=== PATIENT | male | born 1935 | race Two or more races ===

== ENCOUNTER 2020-10-10 16:47 | Inpatient (IN) | payer OTHER, MEDICAID ==
[~2020-10-10] VITALS: Ht 165.1 cm; Wt 71.4 kg
[2020-10-10 18:29] LABS: Basophils # (auto) 0.1 10 ^3/uL (0-0.2); Basophils % (auto) 0.5 % (0.0-2.0); Eosinophils # (auto) 0.3 10 ^3/uL (0-0.8); Eosinophils % (auto) 3.2 % (0.0-7.0); Hematocrit 37.3 % (41.0-53.0); Hemoglobin 12.8 g/dL (13.5-17.5); Lymphocytes % (auto) 31.2 % (10.0-50.0); Mean Corpuscular Hemoglobin 30.7 pg (28.0-32.0); Mean Corpuscular Hgb Conc. 34.2 g/dL (32.0-36.0); Mean Corpuscular Volume 89.8 fL (80.0-100.0); Monocytes # (auto) 0.7 10 ^3/uL (0-1.3); Monocytes % (auto) 7.7 % (0.0-12.0); Neutrophils # (auto) 5.4 10 ^3/uL (1.6-8.6); Neutrophils % (auto) 57.4 % (37.0-80.0); Red Blood Cells 4.16 10^6/uL (4.5-5.90); Red Cell Distribution Width 13.6 % (11.8-14.3); White Blood Cell 9.5 10^3/uL (4.4-10.8)
[2020-10-10 18:49] LABS: Alanine Aminotransferase 20 U/L (16-61); Albumin 3.8 g/dL (3.4-5.0); Anion Gap 9 (5-15); Aspartate Aminotransferase 15 U/L (15-37); Blood Urea Nitrogen 18 mg/dL (7-18); Calcium 8.5 mg/dL (8.5-10.1); Carbon Dioxide 23 mmol/L (21-32); Chloride 100 mmol/L (98-107); Glucose 110 mg/dL (74-106); Potassium 4.1 mmol/L (3.5-5.1); Sodium 132 mmol/L (136-145)
[2020-10-10 18:54] LABS: Alkaline Phosphatase 61 U/L (45-117); BUN/Creatinine Ratio 19.8; Bilirubin, Total 0.6 mg/dL (0.2-1.0); GFR African American 102 mL/min; GFR Non-African American 84 mL/min
[2020-10-10] MEDS ORDERED: ASPirin 81 mg TAB PO ONE (19:15)
[2020-10-10 19:49] LABS: INR 1.03 (0.9-1.15)
[2020-10-10] MEDS ORDERED: ACETAMINOPHEN 325 MG TAB PO PRN (21:00)
[2020-10-10] MEDS ORDERED: ONDANSETRON HCL 4 MG/2 ML VIAL IV PRN (21:00)
[2020-10-10] MEDS ORDERED: TEMAZEPAM 15 MG CAP PO PRN (21:00)
[2020-10-10] MEDS ORDERED: NITROGLYCERIN 0.4 MG SL TAB SL PRN (21:00)
[2020-10-10] MEDS ORDERED: MORPHINE SULFATE INJECTION 2 MG/ML SYRG IV PRN (21:00)
[2020-10-10] MEDS ORDERED: DEXTROSE (50%) 50ML SYRG IV PRN (21:00)
[2020-10-10] MEDS: InsuLIN REG 1unit/0.01ml Soln (100units/ml) SC SCH (22:00)
[2020-10-10 22:10] VITALS: BP 123/70
[2020-10-10] MEDS: ACCU-CHEK COMFORT CURVE STRIP VI SCH (22:33)
[2020-10-10] MEDS: CARVEDILOL 12.5 MG TAB PO SCH (22:34)
[2020-10-10] MEDS: ATORVASTATIN 20 MG TAB PO SCH (22:34)
[2020-10-10 22:45] VITALS: BP 123/70
[2020-10-11 05:12] VITALS: BP 104/59
[2020-10-11 06:17] LABS: Basophils # (auto) 0.1 10 ^3/uL (0-0.2); Basophils % (auto) 0.8 % (0.0-2.0); Eosinophils # (auto) 0.3 10 ^3/uL (0-0.8); Hematocrit 36.7 % (41.0-53.0); Hemoglobin 12.6 g/dL (13.5-17.5); Lymphocytes # (auto) 2.5 10 ^3/uL (0.4-5.4); Lymphocytes % (auto) 38.7 % (10.0-50.0); Mean Corpuscular Hemoglobin 31.2 pg (28.0-32.0); Mean Corpuscular Hgb Conc. 34.4 g/dL (32.0-36.0); Mean Corpuscular Volume 90.7 fL (80.0-100.0); Monocytes # (auto) 0.7 10 ^3/uL (0-1.3); Monocytes % (auto) 10.9 % (0.0-12.0); Neutrophils # (auto) 2.9 10 ^3/uL (1.6-8.6); Neutrophils % (auto) 44.6 % (37.0-80.0); Nucleated Red Blood Cells % 0.2 %; Red Blood Cells 4.04 10^6/uL (4.5-5.90); Red Cell Distribution Width 13.8 % (11.8-14.3); White Blood Cell 6.6 10^3/uL (4.4-10.8)
[2020-10-11] MEDS: ACCU-CHEK COMFORT CURVE STRIP VI SCH ×4 (06:31→22:13)
[2020-10-11] MEDS: InsuLIN REG 1unit/0.01ml Soln (100units/ml) SC SCH ×4 (06:32→22:00)
[2020-10-11 06:46] LABS: BUN/Creatinine Ratio 21.8; Calcium 8.5 mg/dL (8.5-10.1); Potassium 3.8 mmol/L (3.5-5.1)
[2020-10-11] MEDS: FUROSEMIDE 40 MG TAB PO SCH (08:10)
[2020-10-11] MEDS: FINASTERIDE 5 MG TAB PO SCH (08:11)
[2020-10-11] MEDS: CARVEDILOL 12.5 MG TAB PO SCH (08:11)
[2020-10-11] MEDS: CLOPIDOGREL BISULFATE 75 MG TAB PO SCH (08:11)
[2020-10-11] MEDS: ENOXAPARIN SOD 40 MG/0.4 ML SYRINGE SC SCH (08:12)
[2020-10-11 09:00] VITALS: BP 122/66
[2020-10-11] MEDS ORDERED: LOSARTAN POTASSIUM 50 MG TAB PO SCH (10:00)
[2020-10-11] MEDS ORDERED: FAMOTIDINE 20 MG TAB PO SCH (10:00)
[2020-10-11] MEDS ORDERED: ASPirin 81 mg TAB PO SCH (10:00)
[2020-10-11] MEDS ORDERED: SIMV-8 PO (10:05)
[2020-10-11] MEDS ORDERED: FINA5TAB4 PO (10:05)
[2020-10-11] MEDS ORDERED: ASPI-543 PO (10:05)
[2020-10-11] MEDS ORDERED: CARV12.544 PO (10:05)
[2020-10-11] MEDS ORDERED: FAMO-12 PO (10:05)
[2020-10-11] MEDS ORDERED: LOSA-69 PO (10:05)
[2020-10-11] MEDS ORDERED: SPIR25TA8 PO (10:05)
[2020-10-11] MEDS ORDERED: METF-370 PO (10:05)
[2020-10-11] MEDS ORDERED: FURO40TA4 PO (10:05)
[2020-10-11] MEDS ORDERED: CLOP75TA70 PO (10:05)
[2020-10-11 13:00] VITALS: BP 134/72
[2020-10-11 16:54] VITALS: BP 106/60
[2020-10-11 20:00] VITALS: BP 129/60
[2020-10-11] MEDS: ATORVASTATIN 20 MG TAB PO SCH (22:00)
[2020-10-11] MEDS: CARVEDILOL 3.125 MG TAB PO SCH (22:00)
[2020-10-12 04:59] VITALS: BP 121/58
[2020-10-12] MEDS: ACCU-CHEK COMFORT CURVE STRIP VI SCH ×2 (06:41→11:30)
[2020-10-12] MEDS: InsuLIN REG 1unit/0.01ml Soln (100units/ml) SC SCH ×2 (06:44→11:30)
[2020-10-12 06:51] LABS: Magnesium 2.5 mg/dL (1.6-2.6); Potassium 4.1 mmol/L (3.5-5.1)
[2020-10-12 06:58] LABS: Cholesterol 129 mg/dL (< 200); HDL Cholesterol 34 mg/dL (40-59); LDL Cholesterol 62 mg/dL (< 100); Triglycerides 178 mg/dL (< 150)
[2020-10-12] MEDS: CARVEDILOL 3.125 MG TAB PO SCH (09:30)
[2020-10-12] MEDS: FINASTERIDE 5 MG TAB PO SCH (09:30)
[2020-10-12] MEDS: CLOPIDOGREL BISULFATE 75 MG TAB PO SCH (09:30)
[2020-10-12] MEDS: ENOXAPARIN SOD 40 MG/0.4 ML SYRINGE SC SCH (09:31)
[2020-10-12] MEDS ORDERED: PANTOPRAZOLE 40 MG TAB PO SCH (10:00)
[2020-10-12] MEDS: FUROSEMIDE 40 MG TAB PO SCH (10:00)
[2020-10-12] MEDS ORDERED: ASPirin 81 mg TAB PO SCH (10:00)
[2020-10-12] MEDS ORDERED: CHOL500023 PO (11:56)
[2020-10-12] MEDS ORDERED: CARV6.25 PO (11:56)
[2020-10-12] MEDS ORDERED: CHOLECALCIFEROL (VITD3) 2,000 UNIT CAP/TAB PO ONE (12:00)
[2020-10-13] MEDS ORDERED: CHOLECALCIFEROL (VITD3) 2,000 UNIT CAP/TAB PO SCH (10:00)
== END 2020-10-12 16:15 | disposition home or self-care (01) | DRG 313 ==
LOC: ER 16:47 → TELE 20:59 → TELE-WESTW 22:10
PROVIDERS: ADMIT Nurse Practitioner; ATTEND Internal Medicine
DX: R07.89 Other chest pain (principal); I50.43 Acute on chronic combined systolic (congestive) and diastolic (congestive) heart failure; I25.110 Atherosclerotic heart disease of native coronary artery with unstable angina pectoris; E11.9 Type 2 diabetes mellitus without complications; E78.5 Hyperlipidemia, unspecified; K21.9 Gastro-esophageal reflux disease without esophagitis; E55.9 Vitamin D deficiency, unspecified; I11.0 Hypertensive heart disease with heart failure; N40.0 Benign prostatic hyperplasia without lower urinary tract symptoms; Z82.49 Family history of ischemic heart disease and other diseases of the circulatory system; Z87.891 Personal history of nicotine dependence; Z95.1 Presence of aortocoronary bypass graft; Z20.822 Contact with and (suspected) exposure to COVID-19
CPT/HCPCS: 36415; 71045; 80048; 80053; 80061; 82306; 82962; 83036; 83735; 83880; 84132; 84443; 84484; 85025; 85610; 85730; 87426; 93005; 93306; 97163; G0378; J1815